=== PATIENT | female | born 2005 | race American Indian/Alaskan Native ===

== ENCOUNTER 2025-10-31 22:41 | Emergency (ER) | payer MEDICAID, SELFPAY ==
[2025-10-31 22:42] VITALS: BMI 30.7
[2025-10-31 23:51] VITALS: BP 118/78; PULSE 125; RESP 22; TEMP 39.5; O2SAT 96
[2025-11-01 00:17] VITALS: TEMP 39.5
[2025-11-01] MEDS: NAPROXEN 250 MG TABLET 500 MG PO (00:17)
[2025-11-01] MEDS: ACETAMINOPHEN 500 MG TABLET 1000 MG PO (00:17)
--- NOTE | 2025-11-01 02:02 | EDNOTE_ITS ---
Upper Respiratory Inf. RME/HPI General Chief Complaint: Fever Stated Complaint: FEVER, FLU A Time Seen by Provider: 10/31/25 23:56 Arrival date/time: 10/31/25 22:41 20F with no significant PMH presents to ED with 3 days of cough and fevers/chills. 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 She doesn't know what to do about the fever. Limitations: no limitations Related Data Previous Rx's ?Medication ?Instructions ?Recorded ibuprofen 600 mg tablet 600 mg PO Q6H #30 tabs 10/13 Allergies Allergy/AdvReac Type Severity Reaction Status Date / Time No Known Allergies Allergy Verified 10/31/25 22:42 Review of Systems Review of Systems Systems Reviewed: All systems reviewed, normal except as documented Constitutional Constitutional: Reports as per HPI, Reports chills and Reports fever(s) Respiratory Respiratory: Reports as per HPI and Reports cough Past Medical History Past Medical History CARDIAC: Negative Congestive Heart Failure RESPIRATORY: Negative Chronic Obstructive Pulmonary Disease (COPD) GENITOURINARY: Negative Renal Disease ENDOCRINE: Negative Diabetes Mellitus Type 1 or Diabetes Mellitus Type 2 Social History SMOKING STATUS: Current every day smoker ED Exam General Limitations: Present no limitations General appearance: Present alert and in no apparent distress Head Head exam: Present atraumatic ENT ENT exam: Present normal exam, normal oropharynx and mucous membranes moist Neck Neck exam: Present normal inspection, full ROM and trachea midline Chest Chest inspection: Present normal inspection and symmetric chest wall rise Respiratory Respiratory exam: Present normal lung sounds bilaterally Neurological Exam Neurological exam: Present alert and oriented X3 Psychiatric Psychiatric exam: Present normal affect and normal mood Skin Skin exam: Present warm, dry, intact and normal color Course Quality Measures none Orders Category Date Time Status Acetaminophen Tab [Tylenol ES Tab] Med 10/31/25 23:56 Discontinued 1,000 mg PO X1 ONE DiphenhydrAMINE [Benadryl] Med 10/31/25 23:56 Discontinued 25 mg PO X1 ONE Naproxen [Naprosyn] Med 10/31/25 23:56 Discontinued 500 mg PO X1 ONE Vital Signs Vital signs: Vital Signs Temperature 103.1 F H 10/31/25 23:51 Pulse Rate 125 H 10/31/25 23:51 Respiratory Rate 22 H 10/31/25 23:51 Blood Pressure 118/78 10/31/25 23:51 Pulse Oximetry (%) 96 10/31/25 23:51 Oxygen Delivery Method Room Air 10/31/25 23:51 O2 at 96% on RA and WNLs Upper Respiratory Infection MDM Narrative MDM Narrative:: 20F with no significant PMH presents to ED with 3 days of cough and fevers/chills. 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 She doesn't know what to do about the fever. Physical exam reveals clear lungs and oropharynx. Normal WOB. Patient is febrile, but does not appear toxic. Meds and personal financial counselor given. Patient data External records reviewed:: [facility] previous records Clinical information provided by:: patient Social determinants that could affect healthcare access:: none Patient has the following chronic illnesses:: none How is presenting disease/condition affected by chronic disease/condition?: no chronic disease Evaluation data The following diagnostics were reviewed and interpreted by me:: other (specify) (none) Lab and/or radiology exams considered but not ordered:: not ordered Interpretation Summary: n/a Medications / Prescriptions Medications or Prescriptions considered but not ordered:: ordered Medication administrations:: Medication Administration History Discontinued Medications Acetaminophen (Acetaminophen 500 Mg Tablet) 1,000 mg PO X1 ONE Stop: 10/31/25 23:57 Last Admin: 11/01/25 00:17 Dose: 1,000 mg Documented By: BD Diphenhydramine HCl (Diphenhydramine 25 Mg Capsule) 25 mg PO X1 ONE Stop: 10/31/25 23:57 Last Admin: 11/01/25 00:17 Dose: 25 mg Documented By: BD Naproxen (Naproxen 250 Mg Tablet) 500 mg PO X1 ONE Stop: 10/31/25 23:57 Last Admin: 11/01/25 00:17 Dose: 500 mg Documented By: BD above Consultations Consultation(s) initiated? (list below): No Diagnosis Upper Respiratory Differential Diagnosis: upper respiratory infection, croup, otitis media, sinusitis, viral infection, bronchitis, influenza and pharyngitis Most likely diagnosis given after review of the tests above:: flu A Admission Indicated Admission indicated?: not indicated Admission Request Was there a request for admission?: No Disposition Plan Disposition Plan: Discharge Discharge Attestation Discharge Attestation: The patient and all family members were given an opportunity to ask questions and understood the discharge instructions. Discharge instructions specifically effects, indications for sooner follow up or return to the emergency department, and the expected course of current diagnosis. Patient condition: Stable Discharge Plan Plan Patient Disposition: HOME (Self Care) Discharge Disposition comment: Stable Prescriptions/Referrals Prescriptions/Med Rec: No Action ibuprofen 600 mg tablet 600 mg PO Q6H Qty: 30 0RF Problem List Clinical Impression: Influenza A Patient/Caregiver Discharge Instructions Education Materials: ED Influenza (Adult) Additional Instructions: Please follow-up with PCP within 24-48 hours and return immediately if symptoms worsen. Ibuprofen/Tylenol can be used simultaneously for greater fever/pain control. Benadryl is good for cough, congestion, and sleep. Keep hydrated. Advance diet as tolerated. Print Language: Hungarian Stand Alone Forms: Patient Portal Info Letter PA/[employer] Supervising Physician KATEY/MARQUES Supervising Physician: Dr. Ortiz
== END 2025-11-01 00:20 | disposition home or self-care (01) ==
LOC: SERX 11-01 00:25
PROVIDERS: Emergency Provider Emergency Medicine; PCP Physician Assistant
DX: J10.1 Influenza due to other identified influenza virus with other respiratory manifestations (principal); F17.290 Nicotine dependence, other tobacco product, uncomplicated
CPT/HCPCS: 99281; A9270